=== PATIENT | male | born 2000 | race Caucasian/White ===

== ENCOUNTER 2024-01-01 11:32 | Emergency (ER) | payer OTHER, SELFPAY ==
[2024-01-01] VITALS (10 sets, daily range): BP systolic 118–136; BP diastolic 61–93; PULSE 67–89; RESP 14–20; TEMP 36.6; O2SAT 99; BMI 19.0
--- NOTE | 2024-01-01 11:41 | EKG12_ITS ---
Test Reason : ABD TRAUMA Blood Pressure : / mmHG Vent. Rate : 059 BPM Atrial Rate : 059 BPM P-R Int : 148 ms QRS Dur : 094 ms QT Int : 422 ms P-R-T Axes : 070 086 074 degrees QTc Int : 417 ms Sinus bradycardia Otherwise normal ECG Confirmed by Sandeep Daniel ([id number]), field map editor ERNESTO JARRETT ([id number]) on 01/02/2024 1:35:24 PM Referred By: Confirmed By:Sandeep Daniel
--- NOTE | 2024-01-01 11:41 | CT_ITS ---
HISTORY: blunt trauma. TECHNIQUE: Helically acquired images were obtained of the chest, abdomen, and pelvis after the intravenous administration of 100 mL Isovue-370. No oral contrast was administered. 2-D reformatted images provided. A radiation dose optimization technique was used for this scan. 1242 images. COMPARISON: None. FINDINGS: ----Chest: LARGE AIRWAYS: Patent. LUNGS: Clear. PLEURA: No pneumothorax or significant pleural effusion. HEART AND PERICARDIUM: Heart within normal limits in size, intact appearance. No significant pericardial effusion. VESSELS: No thoracic aortic aneurysm or dissection flap. No large central central pulmonary embolism although study not performed with the pulmonary embolism protocol. MEDIASTINUM AND CHERISE: No pathologically enlarged lymph nodes. Residual thymus incidentally noted. BONES: No acute displaced fracture identified. ----Abdomen/Pelvis: BOWEL: Bowel nondilated. No periappendiceal inflammation. PERITONEUM: Mild hemoperitoneum with moderate mesenteric hemorrhage in the left upper and lower quadrants thickening around thick-walled small bowel. Mild retroperitoneal hemorrhage also identified. Small round foci of contrast puddling measuring up to 8 mm in the left mesentery and left retroperitoneal. Punctate focus of air in the left upper quadrant, unclear if intraluminal extraluminal. LIVER/SPLEEN/PANCREAS: Homogeneous without focal lesion. GALLBLADDER/BILIARY TREE: Gallbladder present. KIDNEYS/ADRENAL GLANDS: Intact without focal lesion. VESSELS: Normal caliber and contour of the abdominal aorta. PELVIC ORGANS: Unremarkable. ABDOMINAL WALL: Right testicle in the inguinal canal. BONES: No acute fracture or dislocation identified. CT/CT Chest, Abd, Pel w/Contrast IMPRESSION: Moderate left mesenteric hemorrhage and mild left retroperitoneal hemorrhage with small round foci of contrast extravasation concerning for active bleeding/vascular injury. Left upper quadrant small bowel wall thickening concerning for bowel injury. Mild hemoperitoneum extending into the pelvis. Electronically Signed: Janie Morris MD at 12:54 EDT ,
--- NOTE | 2024-01-01 11:42 | ED.VIS.FALL ---
HPI HPI - Fall History of Present Illness Chief Complaint: Trauma Informant: patient, family and EMS Narrative Narrative: Healthy 23-year-old [place] male fell off of a horse, landing on his back he states he was not injured until the horse then fell and rolled over onto him while he was supine, and the handle of the saddle went into his mid abdomen which he feels like because of the injury. He is having severe abdominal pain. He denies dyspnea or extremity injury or head injury or neck or back pain. No vomiting. EMS gave him Zofran and fentanyl prior to arrival. PFSH PFSH Medical History no medical history no medical history Home Medications ?Medication ?Instructions ?Recorded ?Last Taken ?Type NK 01/01/24 Unknown History Allergy/AdvReac Type Severity Reaction Status Date / Time No Known Allergies Allergy Verified 01/01/24 11:39 Family History no significant family his Surgical History no surgical history Social History Smoking Status: Current every day smoker tobacco type: cigarettes ROS ROS ED Constitutional Constitutional ED: Denies chills or fever(s) Eyes Eyes: Denies change in vision or diplopia ENT ENT ED: Denies ear pain, epistaxis, facial pain or rhinorrhea Cardiovascular Cardiovascular: Reports other Details: Questionable pain left lower ribs, no other chest pain ; Denies palpitations Respiratory/Chest Respiratory/Chest: Denies cough or dyspnea Gastrointestinal Gastrointestinal: Reports abdominal pain; Denies diarrhea, melena, nausea or vomiting Genitourinary Genitourinary ED: Denies dysuria or hematuria Musculoskeletal Musculoskeletal: Denies back pain, extremity pain or neck pain Integumentary Denies abscess, Abrasions, laceration or rash Neurologic Neurologic: Denies confusion, headache(s), paresthesias or weakness EXAM Physical Exam Const Vital Signs: 01/01/24 11:33 01/01/24 11:40 01/01/24 12:33 Temperature 98 F Temperature Source Oral Pulse Rate 78 68 Respiratory Rate 20 H 16 Respiratory Effort Normal Blood Pressure 119/63 129/61 H Blood Pressure Mean 81 83 Pulse Ox 99 99 99 Oxygen Delivery Method Room Air Room Air 01/01/24 13:00 01/01/24 13:17 Temperature 98 F Temperature Source Pulse Rate 67 89 Respiratory Rate 16 19 H Respiratory Effort Blood Pressure 130/69 H 130/93 H Blood Pressure Mean 89 105 Pulse Ox 99 99 Oxygen Delivery Method Room Air Positive well nourished and well developed General Appearance ED: well developed and NAD HEENT Reports TM's clear and nasal mucous membranes and turbinates normal atraumatic Face and Sinus: Negative for facial tenderness Tympanic Membrane ED: Yes TM's clear Eyes PERRL and EOMs intact bilaterally Visual Acuity: other Other Details: no entrapment or pain with extraocular movements Neck full ROM and supple General: Negative for tenderness Chest Wall inspection of chest normal and palpation of chest normal Chest: symmetrical chest wall rise; Negative for crepitus or tenderness Resp normal respiratory effort, no retractions and clear to auscultation bilaterally Percussion: other equal BS bilat Cardio no murmurs Rate: regular rate; Negative for bradycardia or tachycardic Rhythm: regular rhythm GI normal to inspection, nondistended, normoactive bowel sounds and soft to palpation GI Narrative: Tender periumbilical area. No distention. Large contusion supraumbilical, it is mostly erythema there is no purpura or Po sign or Davila Smith sign. Back is nontender. No rebound tenderness. Back/Spine normal ROM Cervical Spine: Negative for cervical spine tenderness Thoracic Spine / Upper Back: Negative for thoracic spinal tenderness Lumbar Spine / Lower Back: Negative for lumbar spinal tenderness Extremity normal to inspection and full ROM General Extremety ED: Negative for tenderness Neuro oriented x3, CN's II-XII intact bilaterally, moves all extremities, no focal motor deficits and no sensory deficits noted Bam Coma Scale: document GCS findings Spontaneous Obeys Commands Oriented 15 Sensorium / Orientation: awake and alert Psych mental status grossly normal and thought process normal Skin no wounds Skin Narrative: No signs of trauma other than the contusion in his supraumbilical area. Lesions: no lesions Rashes: no rashes MDM MDM MDM Narrative Medical decision making narrative: Patient appears to be in a lot of discomfort even after getting some fentanyl from EMS. He is pointing to his periumbilical area. His vital signs are normal. The rest of his exam really is benign, he said he was having some pain in his upper abdomen but mostly periumbilical, his chest, ribs, sternum all nontender and stable. I did a FAST exam as part of my primary survey with nearby bedside ultrasound; all 4 windows are normal showing no free fluid or pericardial fluid. Therefore he is given IV fluids, labs obtained, and we are going to send him for CT of the chest/abdomen/pelvis. In the meantime he was given several doses of fentanyl. I reviewed the images and the report which I agree with, and spoke with the radiology service regarding the findings. There is moderate mesenteric and mild retroperitoneal hemorrhage with a small area of contrast extravasation concerning for an active bleed/vascular injury. No other solid organ injury except for suspicion for small bowel injury/contusion. There is mild hemoperitoneum extending into the pelvis although this was not seen grossly during the FAST exam probably because of the timing and relatively small amount. On reevaluation after another dose of fentanyl the patient is stable clinically and hemodynamically with pulse 67 blood pressure 130/69. Patient will require transfer to trauma center. Discussed thoroughly with the patient and family they desired [facility], discussed there with EM physician Dr. Mullins who accepts the patient in transfer. Attempted to secure ground local transportation to [place]. Not able to obtain anyone in the next 30-45 minutes by ground. Therefore I advised family they need to go by air which is currently available via [facility] critical care transport. They initially very resistant, they understand this is potentially life and situation and eventually agreeable to being transferred by air. Manager Wound Care to alert the accepting hospital. Lab Data Attestation: I reviewed the patient's lab results. Labs: Laboratory Results - last 24 hr 01/01/24 01/01/24 11:40 12:41 WBC 10.4 RBC 5.10 Hgb 15.3 Hct 44.0 MCV 86.3 MCH 30.0 MCHC 34.8 RDW Std Deviation 37.8 RDW Coeff of Kevin 11.9 Plt Count 193 MPV 10.1 Immature Gran % (Auto) 1.000 H Neut % (Auto) 58.5 Lymph % (Auto) 30.7 [place] % (Auto) 6.5 Eos % (Auto) 2.9 Baso % (Auto) 0.4 Absolute Neuts (auto) 6.1 Absolute Lymphs (auto) 3.19 Nucleated RBC % 0 Sodium 137 Potassium 3.6 Chloride 105 Carbon Dioxide 26.0 Anion Gap 6 BUN 21 H Creatinine 1.11 Estim Creat Clear Calc 87.98 Est GFR (MDRD) Af Amer 105 Est GFR (MDRD) Non-Af 87 BUN/Creatinine Ratio 18.9 Glucose 143 H Calcium 10.0 Total Bilirubin 1.20 H AST 36 ALT 48 Alkaline Phosphatase 84 Total Protein 7.8 Albumin 4.1 Globulin 3.7 Albumin/Globulin Ratio 1.1 Lipase 64 Urine Color Yellow Urine Clarity Clear Urine pH 6.0 Ur Specific [place] 1.015 Urine Protein 30 H Urine Glucose (UA) Normal Urine Ketones Negative Urine Occult Blood 25 H Urine Nitrite Negative Urine Bilirubin Negative Urine Urobilinogen Normal Ur Leukocyte Esterase Negative Urine RBC 0-5 SEEN Urine WBC 0 SEEN Ur Squamous Epith Cells 0 SEEN Urine Bacteria 0 SEEN Urine Mucus 0 SEEN Radiography Diagnostic Testing: Clinical Impression(s) from Imaging Studies Chest/Abdomen/Pelvis CT 01/01/24 11:41 IMPRESSION: Moderate left mesenteric hemorrhage and mild left retroperitoneal hemorrhage with small round foci of contrast extravasation concerning for active bleeding/vascular injury. Left upper quadrant small bowel wall thickening concerning for bowel injury. Mild hemoperitoneum extending into the pelvis. Electronically Signed: Janie Morris MD at 12:54 EDT , ADDENDUM: 01/01/24 1305 IMPRESSION: Moderate left mesenteric hemorrhage and mild left retroperitoneal hemorrhage with small round foci of contrast extravasation concerning for active bleeding/vascular injury. Left upper quadrant small bowel wall thickening concerning for bowel injury. Mild hemoperitoneum extending into the pelvis. N.B. : Lito Lozano MD, confirmed on 01/01/2024 12:58:56 (ET) that the referring physician received the results and does not require a verbal communication. 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
[2024-01-01] MEDS: fentaNYL 100 MCG/2 ML Ampul 50 MCG IV ×3 (11:50→13:34)
[2024-01-01] MEDS: 0.9% Normal Saline (1000mL) 1,000 ML 999 ML IV ×2 (11:51→13:36)
[2024-01-01 11:52] LABS: Absolute Lymphocyte Count 3.19 X10^3/uL (0.83-4.51); Absolute Neutrophil Count 6.1 X10^3/uL (2.0-7.7); Basophil# 0.04 X10^3/uL; Basophil% 0.4 % (0-1); Eosinophils% 2.9 % (0-5); Hemoglobin 15.3 g/dL (13.0-16.5); Lymphocyte # 3.19 X10^3/ul (0.83-4.51); Lymphocyte % 30.7 % (19-41); Mean Corp Hgb Conc 34.8 g/dL (32-36); Mean Corpuscular Volume 86.3 fL (80-94); Mean Platelet Vol. 10.1 fl (6.2-12.0); Monocyte# 0.68 X10^3/uL; Monocyte% 6.5 % (0-10); NRBC Flagged by Analyzer 0 % (0-5); Neutrophil # 6.08 X10^3/uL (2.7-7.7); Neutrophil % 58.5 % (47-70); Platelet Count 193 K/mm3 (150-450); RBC Distribution Width CV 11.9 % (11.6-14.6); RBC Distribution Width SD 37.8 fl (35.1-43.9); White Blood Count 10.4 K/mm3 (4.4-11.0)
[2024-01-01 12:16] LABS: ALB/GLOB Ratio 1.1 RATIO (0.9-2.4); AST(SGOT) 36 U/L (15-37); Alanine Aminotransfer ALT/SGPT 48 U/L (16-61); Albumin, Serum 4.1 g/dL (3.2-5.0); Alkaline Phosphatase 84 U/L (45-117); Anion Gap 6 (5-15); BUN 21 mg/dL (7-18); BUN/Creat Ratio 18.9 RATIO (10-20); Chloride 105 mmol/L (98-107); Creatinine, Serum 1.11 mg/dL (0.70-1.30); EST Glomerular Filtration Rate 87 mL/min (>60); Est Glom Filt Rate - Afr Amer 105 mL/min (>60); Estimated Creatinine Clearance 87.98 ml/min; Globulin 3.7 g/dL (2.2-4.2); Glucose 143 mg/dL (74-106); Lipase 64 U/L (13-75); Potassium 3.6 mmol/L (3.5-5.1); Protein, Total 7.8 g/dL (6.4-8.2); Sodium Level 137 mmol/L (136-145)
[2024-01-01 12:45] LABS: Bacteria 0 SEEN /hpf (None Seen); Mucous, Urine 0 SEEN /hpf (<or=2+); Squamous Epithelial Cells - UA 0 SEEN /hpf (0-5); White Blood Cells 0 SEEN /hpf (0-5)
[2024-01-01 12:47] LABS: Color, Urine Yellow (Yellow); Glucose, Dipstick Normal (Normal); Ketone-Dipstick Negative (Negative); Leukocyte Esterase-Dipstick Negative /ul (Negative); Nitrite-Dipstick Negative (Negative); Occult Blood-Urine 25 /ul (Negative); Protein-Dipstick 30 mg/dl (Negative); Specific Gravity, Urine 1.015 (1.002-1.030); Urine Bilirubin Dipstick Negative (Negative); Urine Clarity Clear (Clear); Urine Urobilinogen Normal (Normal)
[2024-01-01 12:56] LABS: Red Blood Cells-Urine 0-5 SEEN /hpf (0-5)
[2024-01-01] MEDS: Ondansetron 4 MG/2 ML Vial IV (13:31)
--- NOTE | 2024-01-01 13:37 | ED.RN ---
THIS RN HAD LONG TALK WITH PT REGARDING NEED TO FLY SINCE UNABLE TO OBTAIN GROUND TRANSPORT FOR SEVERAL HOURS. PT FAMILY HESITANT TO FLY BUT DOES UNDERSTAND THE SERIOUSNESS OF THE REASON. LISBETH CHAN LIAISON IN DEPARTMENT. FAMILY DOES AGREE TO FLY. ARRANGEMENTS MADE
== END 2024-01-01 14:40 | disposition short-term general hospital (02) ==
PROVIDERS: Emergency Provider Emergency Medicine; Visit Provider Emergency Medicine
DX: K68.3 Retroperitoneal hematoma (principal); F17.210 Nicotine dependence, cigarettes, uncomplicated; T14.90XA Injury, unspecified, initial encounter; V80.010A Animal-rider injured by fall from or being thrown from horse in noncollision accident, initial encounter; K66.1 Hemoperitoneum
CPT/HCPCS: 71260; 74177; 80053; 81001; 83690; 85025; 93005; 96361; 96374; 96375; 96376; 99285; Q9967; A4216; J2405